=== PATIENT | male | born 1995 | race African-American/Black ===

== ENCOUNTER 2018-10-03 00:38 | Emergency (ER) | payer SELFPAY ==
[~2018-10-03] VITALS: Ht 175.3 cm; Wt 81.6 kg
[2018-10-03] MEDS ORDERED: HYDROcodone-ACET 7.5/325MG TAB PO ONE (01:00)
[2018-10-03 03:36] VITALS: BP 153/85
== END 2018-10-03 03:31 | disposition home or self-care (01) ==
LOC: EDBD 00:38 → ER 00:48
DX: S10.93XA Contusion of unspecified part of neck, initial encounter (principal); S80.00XA Contusion of unspecified knee, initial encounter; Y08.89XA Assault by other specified means, initial encounter; Y93.89 Activity, other specified; Y99.8 Other external cause status; Y92.89 Other specified places as the place of occurrence of the external cause
CPT/HCPCS: 70450; 72125; 73562